=== PATIENT | male | born 1985 | race Caucasian/White ===

== ENCOUNTER 2023-12-23 04:11 | Emergency (ER) | payer OTHER, MEDICAID, SELFPAY ==
[2023-12-23 04:20] VITALS: BP 183/101; PULSE 94; RESP 17; TEMP 36.7; O2SAT 98; BMI 31.3
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
[2023-12-23] MEDS: DROPERIDOL 5 MG/2 ML VIAL 2.5 MG IV (05:01)
[2023-12-23 05:17] LABS: Add Manual Diff / Slide Review NO; Basophils Absolute Auto 300 /uL (0-100); Basophils Percent Auto 1.2 % (0-2); Eosinophils Absolute Auto 0 /uL (0-450); Hematocrit 40.4 % (41-53); Hemoglobin 14.1 g/dL (13.5-17.5); Lymphocytes Absolute Auto 1800 /uL (1100-4500); Lymphocytes Percent Auto 8.5 % (25-40); Mean Corpuscular Hemoglobin 29.7 PG (26-34); Mean Corpuscular Volume 84.9 fL (80-100); Monocytes Absolute Auto 700 /uL (0-900); Monocytes Percent Auto 3.5 % (3-14); Neutrophils Absolute Auto 18500 /uL (1500-7000); Neutrophils Percent Auto 86.8 % (50-75); Platelet Count 360 X10^3/uL (150-400); Red Blood Cell Count 4.76 X10^6/uL (4.5-5.9); Red Cell Distribution Width 14.7 % (11.6-14.8); White Blood Cell Count 21.3 X10^3/uL (4.5-11.0)
[2023-12-23 05:25] LABS: Alanine Aminotransferase 27 IU/L (<50); Albumin 3.9 g/dL (3.5-5.0); Albumin Globulin Ratio 1.6 (1.0-2.8); Alkaline Phosphatase 71 U/L (38-126); Aspartate Aminotransferase 24 IU/L (17-59); BUN Creatinine Ratio 10.8 (6-22); Bilirubin Total 0.6 mg/dL (0.2-1.3); Blood Urea Nitrogen 8 mg/dL (9-20); Calcium 8.9 mg/dL (8.4-10.2); Carbon Dioxide 26 mmol/L (22-32); Chloride 99 mmol/L (98-107); Estimated Glomerular Filt Rate > 60 mL/min (>60); Globulin 2.4 g/dL (1.7-4.1); Glucose 113 mg/dL (70-100); HEMOLYSIS < 15 (0-50); Potassium 3.4 mmol/L (3.4-5.1); Sodium 133 mmol/L (137-145); Total Protein 6.3 g/dL (6.3-8.2)
--- NOTE | 2023-12-23 05:27 | DI.CT.S_ITS ---
PROCEDURE: CT ABDOMEN PELVIS W CON INDICATIONS: VENTRAL HERNIA REPAIR YESTERDAY, REPORTING 12/28 PAIN TECHNIQUE: After the administration of intravenous contrast, axial sections acquired from the lung bases to the pubic symphysis. Coronal and sagittal reformats were performed. For radiation dose reduction, the following was used: automated exposure control, adjustment of mA and/or kV according to patient size. COMPARISON: Merged With [facility], CT, CT ABDOMEN PELVIS WITH CONTRAST, 12/21/2023, 21:22. FINDINGS: Image quality: Diagnostic Lower chest: Bibasilar opacities and atelectasis. No drainable effusions. Mfgv-lb-pegxyiar distal esophageal wall thickening. Liver: Unremarkable Gallbladder and biliary system: Unremarkable, nondilated Pancreas: No ductal dilation Spleen: Nonenlarged Adrenals: No discrete nodules Kidneys: No solid mass or hydronephrosis Possible right upper pole renal cysts. There is a septation. Vessels and lymph nodes: Main portal vein is patent. No abdominal aortic aneurysm or pathologic lymph nodes by size criteria. Bowel and peritoneum: No evidence of small bowel obstruction. Mild anterior mesenteric and omental edematous fat stranding, likely postsurgical. Small amount pneumoperitoneum likely postsurgical Body wall: Ventral hernia repair sequelae. Gas and fluid is seen at the surgical site measuring 7.6 x 5 cm. Pelvis: Bladder is unremarkable. Prostate is unremarkable. Small fat containing inguinal hernias. Bones: No acute or suspicious osseous finding. IMPRESSION: Postsurgical changes of ventral hernia repair. A fluid collection is seen in the anterior wall surgical site with gas measuring 7.6 x 5 cm, probably a seroma, sterility indeterminate on imaging. Nonspecific distal esophageal wall thickening. Consider endoscopy follow-up if clinically indicated. Mild lower lung opacities could represent atelectasis and/or early airspace disease. Consider future imaging surveillance to assess for resolution. No significant discrepancy from the above findings in the prelim report. Possible right upper pole renal cyst with a septation. Consider nonurgent sonographic follow-up. This was marked for additional nonurgent follow-up in PACS. Other findings above. Dictated by: Anderson Santizo M.D. on 12/23/2023 at 8:30 Approved by: Anderson Santizo M.D. on 12/23/2023 at 8:38
[2023-12-23 05:59] LABS: Lactate (Lactic Acid) 2.5 mmol/L (0.7-2.1)
[2023-12-23] MEDS: HYDROMORPHONE 0.5 MG INJ IV (06:07)
[2023-12-23 06:10] VITALS: PULSE 125; O2SAT 100
[2023-12-23 06:11] VITALS: BP 129/86; PULSE 125; RESP 19; TEMP 37.6; O2SAT 98
[2023-12-23] MEDS: ONDANSETRON 4 MG/2 ML INJ IV (06:16)
[2023-12-23] MEDS: SODIUM CHLORIDE 0.9% 1,000 ML 1000 ML IV (06:16)
[2023-12-23 06:41] VITALS: PULSE 89
[2023-12-23 07:24] LABS: Reflexed Lactate in 2 Hours Y
== END 2023-12-23 06:40 | disposition home or self-care (01) ==
PROVIDERS: Emergency Provider Emergency Medicine
DX: G89.18 Other acute postprocedural pain (principal); E87.6 Hypokalemia; Z79.899 Other long term (current) drug therapy
CPT/HCPCS: 36415; 74177; 80053; 83605; 85025; 96374; 96375; 99284; J1171; J1790; J2405; Q9967